=== PATIENT | female | born 1935 | race Caucasian/White ===

== ENCOUNTER 2017-09-19 08:00 | Outpatient (CLI) | payer MEDICARE, OTHER ==
[2017-09-19 14:11] LABS: ALBUMIN/GLOBULIN RATIO 1.3 (1.0-2.2); BILIRUBIN,TOTAL 0.6 mg/dL (0.2-1.0); BUN - BLOOD UREA NITROGEN 22 mg/dL (6-20); CALCIUM 9.5 mg/dL (8.5-10.3); CARBON DIOXIDE - CO2 28 mmol/L (21-32); CHLORIDE 102 mmol/L (101-111); CHOL/HDL RATIO 4.6 (<4.4); CHOLESTEROL 211 mg/dL; CREATININE 1.1 mg/dL (0.4-1.0); GFR - MDRD 47 (>89); GLUCOSE 94 mg/dL (70-100); HDL CHOLESTEROL 46 mg/dL; LDL/HDL RATIO 3.1 (<4.4); POTASSIUM 3.9 mmol/L (3.5-5.0); SODIUM 138 mmol/L (135-145); TRIGLYCERIDES 119 mg/dL; VLDL CHOLESTEROL 24 mg/dL
== END 2017-09-19 08:01 | disposition home or self-care (01) ==
LOC: LAB.WCP 08:00
PROVIDERS: ATTEND Family Medicine
DX: I48.91 Unspecified atrial fibrillation (principal); Z79.899 Other long term (current) drug therapy; E78.5 Hyperlipidemia, unspecified; I10 Essential (primary) hypertension
CPT/HCPCS: 36415; 80053; 80061

== ENCOUNTER 2017-12-26 08:00 | Outpatient (CLI) | payer MEDICARE, OTHER ==
[2017-12-26 12:51] LABS: ALBUMIN 3.8 g/dL (3.2-5.5); ALBUMIN/GLOBULIN RATIO 1.3 (1.0-2.2); BILIRUBIN,TOTAL 0.4 mg/dL (0.2-1.0); CALCIUM 9.4 mg/dL (8.5-10.3); CREATININE 1.1 mg/dL (0.4-1.0); TOTAL PROTEIN 6.7 g/dL (6.7-8.2)
[2017-12-26 12:56] LABS: BASOPHILS # (AUTO) 0.1 10^3/uL (0.0-0.1); BASOPHILS % (AUTO) 1.7 %; EOSINOPHILS # (AUTO) 0.4 10^3/uL (0.0-0.7); EOSINOPHILS % (AUTO) 4.5 %; HGB - HEMOGLOBIN 13.5 g/dL (12.0-16.0); LYMPHOCYTES # (AUTO) 2.6 10^3/uL (1.5-3.5); LYMPHOCYTES % (AUTO) 30.3 %; MEAN CORPUSCULAR HEMOGLOBIN 29.5 pg (27.0-31.0); MEAN CORPUSCULAR HGB CONC 35.4 g/dL (32.0-36.0); MEAN CORPUSCULAR VOLUME 83.3 fL (81.0-99.0); MEAN PLATELET VOLUME 8.9 fL (7.9-10.8); MONOCYTES # (AUTO) 0.5 10^3/uL (0.0-1.0); MONOCYTES % (AUTO) 6.3 %; NEUTROPHILS # (AUTO) 4.9 10^3/uL (1.5-6.6); NEUTROPHILS % (AUTO) 57.2 %; PLT - PLATELET COUNT 269 10^3/uL (130-450); RED BLOOD COUNT 4.57 10^6/uL (4.20-5.40); RED CELL DISTRIBUTION WIDTH 13.4 % (12.0-15.0); WHITE BLOOD COUNT 8.6 x10^3/uL (4.8-10.8)
[2017-12-28 13:06] LABS: ANA SCREEN NEGATIVE (NEGATIVE)
== END 2017-12-26 08:01 | disposition home or self-care (01) ==
LOC: LAB.WCP 08:00
PROVIDERS: ATTEND Physician Assistant
DX: R21 Rash and other nonspecific skin eruption (principal)
CPT/HCPCS: 36415; 80053; 84443; 85025; 86038

== ENCOUNTER 2018-06-08 08:00 | Outpatient (CLI) | payer MEDICARE, OTHER ==
[2018-06-08 12:40] LABS: ALBUMIN 3.9 g/dL (3.2-5.5); ALBUMIN/GLOBULIN RATIO 1.3 (1.0-2.2); ALKALINE PHOSPHATASE 60 IU/L (42-121); ALT ALANINE AMINOTRANSFERASE 19 IU/L (10-60); AST ASPARTATE AMINOTRANSFERASE 26 IU/L (10-42); BILIRUBIN,TOTAL 0.7 mg/dL (0.2-1.0); BUN - BLOOD UREA NITROGEN 23 mg/dL (6-20); CALCIUM 9.6 mg/dL (8.5-10.3); CARBON DIOXIDE - CO2 27 mmol/L (21-32); CHLORIDE 104 mmol/L (101-111); CHOL/HDL RATIO 3.3 (<4.4); CHOLESTEROL 175 mg/dL; GFR - MDRD 53 (>89); GLUCOSE 94 mg/dL (70-100); HDL CHOLESTEROL 53 mg/dL; LDL CHOLESTEROL,CALCULATED 106 mg/dL; SODIUM 139 mmol/L (135-145); VLDL CHOLESTEROL 16 mg/dL
== END 2018-06-08 08:01 | disposition home or self-care (01) ==
LOC: LAB.WCP 08:00
PROVIDERS: ATTEND Family Medicine
DX: I48.91 Unspecified atrial fibrillation (principal); I10 Essential (primary) hypertension; E04.1 Nontoxic single thyroid nodule; E78.5 Hyperlipidemia, unspecified
CPT/HCPCS: 36415; 80053; 80061; 83721; 84443

== ENCOUNTER 2018-12-29 09:17 | Emergency (ER) | payer MEDICARE, OTHER ==
[2018-12-29] MEDS ORDERED: ATROPINE 0.4 MG/ML VIAL IVP ONE (09:50)
--- NOTE | 2018-12-29 09:57 | ED Physician Documentation ---
History of Present Illness - Stated complaint Stated Complaint: LOW HEART RATE/SENT BY - Chief complaint Chief Complaint: Cardiac - History obtained from History obtained from: Patient - History of Present Illness Timing: How many days ago (2) - Additonal information Additional information: The patient is a 83-year-old female who presents with dizziness and lightheadedness and generalized fatigue that started 2 days ago and has persisted since that time. She reports associated dyspnea. She denies chest pain, cough, or fever. She denies nausea or vomiting. She denies history of similar symptoms in the past. Her past medical history is significant for atrial fibrillation and RBBB. She was seen in her primary physician's office this morning and was found to have bradycardia with AV dissociation, and was subsequently sent to the emergency department. Review of Systems Constitutional: reports: Fatigue, Other (Dizziness, lightheadedness.). denies: Fever Eyes: denies: Decreased vision Nose: denies: Congestion Throat: denies: Sore throat Cardiac: denies: Chest pain / pressure, Palpitations Respiratory: reports: Dyspnea. denies: Cough GI: denies: Abdominal Pain, Nausea, Vomiting : denies: Dysuria Skin: denies: Rash Musculoskeletal: denies: Back pain, Extremity pain Neurologic: reports: Generalized weakness. denies: Focal weakness, Numbness, Syncope, Headache PD PAST MEDICAL HISTORY - Past Medical History Cardiovascular: Hypertension, High cholesterol, Atrial fibrillation, Murmur Respiratory: None Endocrine/Autoimmune: None GI: None : None HEENT: None Psych: None Musculoskeletal: Osteoarthritis, Osteoporosis Derm: None - Past Surgical History Past Surgical History: Yes General: Appendectomy, Colonoscopy Ortho: Other HEENT: Tonsil/Adenoidectomy - Present Medications Home Medications: Ambulatory Orders Medication Instructions Recorded Confirmed Ascorbic Acid/Bioflavonoids [Vit 1 tab ORAL DAILY 08/07/15 12/29/18 C-Bioflavonoids Tab SA] [place]er Cit/Mag/D3/Zn/Senior Instrumentation Engineer/Mikey/Bor 2 tab ORAL DAILY 08/07/15 12/29/18 [Citracal-Vit D + Magnesium Tab] Hydrochlorothiazide 12.5 mg ORAL DAILY 08/07/15 12/29/18 Losartan Potassium 100 mg ORAL DAILY 08/07/15 12/29/18 Multivitamin [Multi-Vitamin Daily] 1 tab ORAL DAILY 08/07/15 12/29/18 [place]-3 Fatty Acids [Fish Oil] 1,400 mg ORAL DAILY 08/07/15 12/29/18 Red Yeast Rice 1,200 mg ORAL DAILY 08/07/15 12/29/18 Vit D3/Folic Acid/B2/B6/B12 1 tab ORAL DAILY 08/07/15 12/29/18 [Folgard Tablet] Aspirin 325 tab PO DAILY 12/29/18 12/29/18 - Allergies Allergies/Adverse Reactions: Allergies Allergy/AdvReac Type Severity Reaction Status Date / Time codeine AdvReac Intermediate Nausea Verified 12/29/18 09:40 - Social History Does the pt smoke?: No Smoking Status: Never smoker Does the pt drink ETOH?: No Does the pt have substance abuse?: No PD ED PE NORMAL - Vitals Vital signs reviewed: Yes (Bradycardic in the mid 30s.) - General General: Alert and oriented X 3, Well developed/nourished - HEENT HEENT: Atraumatic, EOMI, Moist mucous membranes - Neck Neck: Supple, no meningeal sign, No adenopathy, No JVD - Cardiac Cardiac: Other (Bradycardic, regular.) - Respiratory Respiratory: No respiratory distress, Clear bilaterally - Abdomen Abdomen: Soft, Non tender - Back Back: No CVA TTP - Derm Derm: No rash - Extremities Extremities: No edema, No calf tenderness / cord - Neuro Neuro: Alert and oriented X 3, No motor deficit, No sensory deficit Results - Vitals Vitals: Vital Signs - 24 hr 12/29/18 12/29/18 12/29/18 09:29 09:45 10:10 Temperature 36.4 C L Heart Rate 36 L 34 L 36 L Respiratory 18 11 L 15 Rate Blood Pressure 130/70 157/61 H 145/77 H O2 Saturation 100 94 99 12/29/18 12/29/18 12/29/18 10:30 11:01 11:30 Temperature Heart Rate 36 L 34 L 33 L Respiratory 16 14 14 Rate Blood Pressure 152/61 H 145/69 H 111/92 H O2 Saturation 97 95 94 12/29/18 12/29/18 12/29/18 11:58 12:00 12:30 Temperature Heart Rate 34 L 35 L 34 L Respiratory 14 14 17 Rate Blood Pressure 154/69 H 145/61 H 140/70 H O2 Saturation 99 97 100 12/29/18 12/29/18 12/29/18 13:00 13:30 14:00 Temperature Heart Rate 35 L 35 L 35 L Respiratory 14 14 14 Rate Blood Pressure 127/60 126/75 139/82 H O2 Saturation 99 99 97 12/29/18 12/29/18 14:30 15:00 Temperature Heart Rate 35 L 36 L Respiratory 14 14 Rate Blood Pressure 120/95 H 132/70 H O2 Saturation 94 97 Oxygen O2 Source Room air - EKG (time done) 09:31 Rate: Rate (enter#) (36) Rhythm: Other (Junctional rhythm.) [place]: LAD Compare to prior EKG: Changed from prior EKG (Compared to prior EKG of 07/27/2016, no longer in atrial fibrillation.) Computer interpretation: Agree with computer - Labs Labs: Laboratory Tests 12/29/18 12/29/18 12/29/18 09:52 09:52 09:52 WBC 12.1 H RBC 4.61 Hgb 13.3 Hct 40.2 MCV 87.3 MCH 29.0 MCHC 33.2 RDW 13.9 Plt Count 272 MPV 10.2 Neut # (Auto) 8.4 H Lymph # (Auto) 2.6 [place] # (Auto) 0.9 Eos # (Auto) 0.2 Baso # (Auto) 0.1 Absolute Nucleated RBC 0.00 Nucleated RBC % 0.0 Sodium 134 L Potassium 5.0 Chloride 101 Carbon Dioxide 25 Anion Gap 8.0 BUN 28 H Creatinine 1.3 H Estimated GFR (MDRD) 39 L Glucose 106 H Calcium 9.9 Total Bilirubin 0.7 AST 33 ALT 20 Alkaline Phosphatase 51 Troponin I < 0.04 Total Protein 6.8 Albumin 4.0 Globulin 2.8 Albumin/Globulin Ratio 1.4 Lipase 30 TSH 12/29/18 09:52 WBC RBC Hgb Hct MCV MCH MCHC RDW Plt Count MPV Neut # (Auto) Lymph # (Auto) [place] # (Auto) Eos # (Auto) Baso # (Auto) Absolute Nucleated RBC Nucleated RBC % Sodium Potassium Chloride Carbon Dioxide Anion Gap BUN Creatinine Estimated GFR (MDRD) Glucose Calcium Total Bilirubin AST ALT Alkaline Phosphatase Troponin I Total Protein Albumin Globulin Albumin/Globulin Ratio Lipase TSH 4.74 - Rads (name of study) cxr Radiology: Prelim report reviewed, EMP read contemporaneously, See rad report (Limited exam, with no acute cardiopulmonary findings.) PD MEDICAL DECISION MAKING - ED course Complexity details: reviewed old records, reviewed results, re-evaluated patient, considered differential, d/w patient, d/w family, d/w telesales consultant ED course: The patient's presentation is significant for complete heart block, with a junctional rhythm at 35. Initial cardiac enzymes are normal. Treatment in the emergency department included administration of atropine 0.4 mg IV. There was no response to this treatment. Pacer pads were applied to her chest and back. I discussed her condition with Dr. Cowan, her financial advocate. She advises transferring to [facility] for pacemaker placement. I discussed her condition with the hospitalist at [facility], and he accepts her in transfer. Transfer forms were completed. Departure - Departure Disposition: 02 Transfer Acute Care Hosp Clinical Impression: Complete heart block Condition: Stable Discharge Date/Time: 12/29/18 15:05
[2018-12-29 09:59] LABS: BASOPHILS # (AUTO) 0.1 10^3/uL (0.0-0.1); BASOPHILS % (AUTO) 0.5 %; EOSINOPHILS # (AUTO) 0.2 10^3/uL (0.0-0.7); EOSINOPHILS % (AUTO) 1.4 %; HGB - HEMOGLOBIN 13.3 g/dL (12.0-16.0); LYMPHOCYTES # (AUTO) 2.6 10^3/uL (1.5-3.5); LYMPHOCYTES % (AUTO) 21.7 %; MEAN CORPUSCULAR HGB CONC 33.2 g/dL (32.0-36.0); MEAN CORPUSCULAR VOLUME 87.3 fL (81.0-99.0); MEAN PLATELET VOLUME 10.2 fL (7.9-10.8); MONOCYTES # (AUTO) 0.9 10^3/uL (0.0-1.0); MONOCYTES % (AUTO) 7.2 %; NEUTROPHILS # (AUTO) 8.4 10^3/uL (1.5-6.6); NEUTROPHILS % (AUTO) 69.2 %; PLT - PLATELET COUNT 272 10^3/uL (130-450); RED BLOOD COUNT 4.61 10^6/uL (4.20-5.40); RED CELL DISTRIBUTION WIDTH 13.9 % (12.0-15.0); WHITE BLOOD COUNT 12.1 x10^3/uL (4.8-10.8)
[2018-12-29 10:14] LABS: ALBUMIN/GLOBULIN RATIO 1.4 (1.0-2.2); BILIRUBIN,TOTAL 0.7 mg/dL (0.2-1.0); CALCIUM 9.9 mg/dL (8.5-10.3); CREATININE 1.3 mg/dL (0.4-1.0); TOTAL PROTEIN 6.8 g/dL (6.7-8.2)
--- NOTE | 2018-12-29 10:24 | XRAY Report ---
Reason: shortness of breath. Procedure Date: 12/29/2018 Accession Number: [id number] / [id number] Procedure: XR - Chest 1 View X-Ray CPT Code: 23799 FULL RESULT: EXAM: CHEST RADIOGRAPHY EXAM DATE: 12/29/2018 10:14 AM. CLINICAL HISTORY: Shortness of breath. COMPARISON: Chest 2 views PA/lateral 07/27/2016 12:04 PM. TECHNIQUE: 1 view. FINDINGS: Lungs/Pleura: No focal opacities evident. No pleural effusion. No pneumothorax. Mediastinum: Interval increase in mild borderline cardiomegaly is likely due to decreased lung volumes and AP portable technique. Calcification of the aortic arch is stable. Other: None. IMPRESSION: Limited examination with no acute airspace disease. RADIA
[2018-12-29 15:15] VITALS: BP 132/70
== END 2018-12-29 15:05 | disposition short-term general hospital (02) ==
LOC: ED 09:17
DX: I44.2 Atrioventricular block, complete (principal); I10 Essential (primary) hypertension; E78.00 Pure hypercholesterolemia, unspecified; Z79.82 Long term (current) use of aspirin
CPT/HCPCS: 36415; 71045; 80053; 83690; 84443; 84484; 85025; 93005; 96374; 99285

== ENCOUNTER 2018-12-29 15:07 | Outpatient (CLI) | payer MEDICARE, OTHER | END 2018-12-29 15:08 | disposition short-term general hospital (02) | LOC: EMS 15:07 | PROVIDERS: ATTEND Surgery | DX: I49.9 Cardiac arrhythmia, unspecified (principal); I48.91 Unspecified atrial fibrillation | CPT/HCPCS: A0425; A0426 ==

== ENCOUNTER 2019-05-11 11:12 | Outpatient (CLI) | payer MEDICARE, OTHER ==
--- NOTE | 2019-05-11 12:38 | Ultrasound Report ---
Reason: PARASTHESIA Procedure Date: 05/11/2019 Accession Number: [id number] / [id number] Procedure: US - Ankle Brachial Index CPT Code: FULL RESULT: EXAM: BILATERAL ANKLE/BRACHIAL INDEX EXAM DATE: 05/11/2019 11:52 AM. CLINICAL HISTORY: PARESTHESIA. COMPARISON: None. TECHNIQUE: A blood pressure cuff and pulse volume recording Doppler ultrasound was used to evaluate the arterial pressures in the arms and ankle. No images were acquired. FINDINGS: Systolic pressures: Right brachial artery: 152 mmHg, index 69 Left brachial artery: 128 mmHg, index 75 Right ankle: 156 mmHg, index 67 Left ankle: 149 mmHg, index 76 Ankle/Arm Index: Right 1.0. Left 1.1. Right leg: CHILDREN'S SERVICE SUPERVISOR: PSV 31. Monophasic/biphasic waveform. DPA: PSV 28. Biphasic waveform. Left leg: CHILDREN'S SERVICE SUPERVISOR: PSV 25. Biphasic waveform. DPA: PSV 14. Monophasic waveform. Risk Factors: Hypertension. IMPRESSION: 1. Right ankle/brachial index: 1.0. 2. Left ankle/brachial index: 1.1. ANKLE/BRACHIAL INDEX REFERENCE STANDARDS 1.0-1.4: Normal 0.90-0.99: Borderline < 0.9: Abnormal RADIA
== END 2019-05-11 11:13 | disposition home or self-care (01) ==
LOC: DI 11:12
PROVIDERS: ATTEND Family Medicine
DX: R20.9 Unspecified disturbances of skin sensation (principal)
CPT/HCPCS: 93922

== ENCOUNTER 2019-07-10 08:00 | Outpatient (CLI) | payer MEDICARE, OTHER ==
[2019-07-10 19:07] LABS: BASOPHILS # (AUTO) 0.1 10^3/uL (0.0-0.1); BASOPHILS % (AUTO) 0.6 %; EOSINOPHILS # (AUTO) 0.3 10^3/uL (0.0-0.7); EOSINOPHILS % (AUTO) 3.7 %; HGB - HEMOGLOBIN 14.4 g/dL (12.0-16.0); LYMPHOCYTES # (AUTO) 3.1 10^3/uL (1.5-3.5); LYMPHOCYTES % (AUTO) 36.5 %; MEAN CORPUSCULAR HEMOGLOBIN 28.5 pg (27.0-31.0); MEAN CORPUSCULAR HGB CONC 31.4 g/dL (32.0-36.0); MEAN CORPUSCULAR VOLUME 90.7 fL (81.0-99.0); MEAN PLATELET VOLUME 11.7 fL (7.9-10.8); MONOCYTES # (AUTO) 0.7 10^3/uL (0.0-1.0); MONOCYTES % (AUTO) 8.1 %; NEUTROPHILS # (AUTO) 4.2 10^3/uL (1.5-6.6); NEUTROPHILS % (AUTO) 50.7 %; PLT - PLATELET COUNT 276 10^3/uL (130-450); RED BLOOD COUNT 5.05 10^6/uL (4.20-5.40); RED CELL DISTRIBUTION WIDTH 13.9 % (12.0-15.0); WHITE BLOOD COUNT 8.4 x10^3/uL (4.8-10.8)
[2019-07-10 19:40] LABS: ALBUMIN 4.3 g/dL (3.2-5.5); ALBUMIN/GLOBULIN RATIO 1.4 (1.0-2.2); ALKALINE PHOSPHATASE 55 IU/L (42-121); ALT ALANINE AMINOTRANSFERASE 18 IU/L (10-60); AST ASPARTATE AMINOTRANSFERASE 25 IU/L (10-42); BILIRUBIN,TOTAL 0.6 mg/dL (0.2-1.0); BUN - BLOOD UREA NITROGEN 19 mg/dL (6-20); CALCIUM 10.4 mg/dL (8.5-10.3); CARBON DIOXIDE - CO2 28 mmol/L (21-32); CHLORIDE 104 mmol/L (101-111); CHOL/HDL RATIO 3.4 (<4.4); CHOLESTEROL 196 mg/dL; GFR - MDRD 53 (>89); GLUCOSE 80 mg/dL (70-100); HDL CHOLESTEROL 57 mg/dL; LDL CHOLESTEROL,CALCULATED 115 mg/dL; SODIUM 142 mmol/L (135-145); TOTAL PROTEIN 7.4 g/dL (6.7-8.2); VLDL CHOLESTEROL 24 mg/dL
[2019-07-10 20:35] LABS: FOLATE > 49.60 ng/mL (5.90 - >24.8)
== END 2019-07-10 23:59 | disposition home or self-care (01) ==
LOC: LAB.WCP 08:00
PROVIDERS: ATTEND Family Medicine
DX: I48.91 Unspecified atrial fibrillation (principal); Z79.899 Other long term (current) drug therapy; E78.5 Hyperlipidemia, unspecified; R20.9 Unspecified disturbances of skin sensation
CPT/HCPCS: 36415; 80053; 80061; 82607; 82746; 83721; 85025

== ENCOUNTER 2019-11-19 12:27 | Outpatient (CLI) | payer MEDICARE, OTHER ==
--- NOTE | 2019-11-19 13:37 | CT Report ---
Reason: HEADACHE, ELDERLY FALL Procedure Date: 11/19/2019 Accession Number: [id number] / [id number] Procedure: CT - HEAD WO CPT Code: Addended Final Report FULL RESULT: EXAM: CT HEAD EXAM DATE: 11/19/2019 12:56 PM. CLINICAL HISTORY: HEADACHE, ELDERLY FALL. COMPARISON: None. TECHNIQUE: Multiaxial CT images were obtained from the foramen magnum to the vertex. Reformats: Sagittal and coronal. IV contrast: None. In accordance with CT protocol optimization, one or more of the following dose reduction techniques were utilized for this exam: automated exposure control, adjustment of mA and/or KV based on patient size, or use of iterative reconstructive technique. FINDINGS: Parenchyma: No intraparenchymal hemorrhage. No evidence of mass or midline shift. Spear-white differentiation is distinct. Diffuse chronic microangiopathic white matter changes are evident. Extraaxial Spaces: Normal for age. No subdural or epidural collections identified. Ventricles: The ventricles and cortical sulci are enlarged, consistent with age-related tissue loss. Sinuses and orbits: Imaged paranasal sinuses, orbits, and mastoids show no significant abnormality. Bones: No evidence of fracture or calvarial defect. Other: None. IMPRESSION: Generalized age-related cortical atrophic changes without evidence of acute intracranial abnormality. RADIA The call report notification system was initiated by Dr. Kaya Green at 01:33 PM on 11/19/2019. ADDENDUM: 11/19/19 13:47 Done ADDENDUM: 11/19/19 13:52
--- NOTE | 2019-11-19 13:49 | CT Report ---
Reason: ACUTE NECK PAIN, ELDERLY FALL Procedure Date: 11/19/2019 Accession Number: [id number] / [id number] Procedure: CT - CERVICAL SPINE WO CPT Code: Addended Final Report FULL RESULT: EXAM: CT CERVICAL SPINE WITHOUT CONTRAST DATE: 11/19/2019 01:05 PM. HISTORY: Acute and persistent neck pain, reported ground-level fall about a week ago. COMPARISONS: None. TECHNIQUE: Thin-section axial images were acquired of the cervical spine without contrast. Post-processing: Coronal and sagittal reformats. Other: None. In accordance with CT protocol optimization, one or more of the following dose reduction techniques were utilized for this exam: automated exposure control, adjustment of mA and/or KV based on patient size, or use of iterative reconstructive technique. FINDINGS: Alignment: Mild chronic degenerative retrolisthesis of C1 on C2. Bones: No acute fracture. Vertebral body heights are grossly maintained. Interspace Levels/Facets: C1-C2: Severe mixed hypertrophic and erosive degenerative changes around the odontoid process. Partially calcified pannus-like soft tissue thickening dorsal to the odontoid process measuring 9-10 mm AP in the midline. No associated cord impingement. Chronic thinning and remodeling of the anterior C1 neural arch. Mild chronic-appearing degenerative C1 on C2 retrolisthesis. Minimal arthritis of the lateral mass articulations. C2-C3: Minimally narrowed disk space. Both facet joints show solid bony fusion. No significant bony stenosis. C3-C4: Solid bony fusion of the mildly hypertrophied facet joint on the left. Partially fused intervertebral disk space. No significant stenosis. C4-C5: Severe disk degeneration. Anterior marginal spurring. Prominent diskogenic sclerosis. Near complete disk space height loss. Mild erosive component of endplate degeneration. Mild bilateral uncinate process spurring. Mild right and moderate left bony foraminal stenosis. The osseous contours of the central canal are grossly maintained. Mild facet arthropathy. C5-C6: Moderate to severe chronic disk degeneration. Prominent bridging anterior osteophyte. Bilateral uncinate process hypertrophy and spurring. Unremarkable facets. Mild bony central stenosis from broad-based bar-like posterior disk osteophyte complex. Mild to moderate bilateral bony foraminal stenosis. C6-C7: Moderate to severe chronic disk degeneration. Anterior marginal spurring. Minimal to mild central stenosis from broad-based bar-like posterior degenerative disk osteophyte complex. Minimal facet arthropathy. Minimal to mild left and [id number] right foraminal stenosis. C7-T1: Severe disk degeneration. Mixed lucent/lytic and sclerotic endplate changes. Anterior and posterior marginal spurring. Mild facet arthropathy. Minimal central stenosis. Moderate bilateral bony foraminal stenosis. Musculature: Normal. No fatty atrophy. Other: Tiny focal calcification adjacent to the tip of the C7 spinous process appears chronic and may be degenerative. No focal prevertebral edema. IMPRESSION: 1. No acute fracture or dislocation. 2. Chronic advanced degenerative changes. 3. Multilevel degenerative stenosis. 4. Solid bony fusion of facet joints bilaterally at C2-C3 and on the left at C3-C4. 5. Mild chronic-appearing degenerative C1 on C2 retrolisthesis primarily secondary to prominent degenerative changes around the odontoid process. RADIA The call report notification system was initiated by Dr. Bang Johnson at 01:30 PM on 11/19/2019. ADDENDUM: 11/19/19 13:52 The above call report findings were discussed with Khoa Gant by Dr. Bang Johnson at 01:52 PM on 11/19/2019.
== END 2019-11-19 12:28 | disposition home or self-care (01) ==
LOC: DI 12:27
PROVIDERS: ATTEND Family Medicine
DX: M50.321 Other cervical disc degeneration at C4-C5 level (principal); M48.02 Spinal stenosis, cervical region; R51 Headache; R29.6 Repeated falls
CPT/HCPCS: 70450; 72125

== ENCOUNTER 2019-12-07 07:00 | Outpatient (CLI) | payer MEDICARE, OTHER | END 2019-12-07 23:59 | disposition home or self-care (01) | LOC: LAB.WCP 07:00 | PROVIDERS: ATTEND Psychiatry & Neurology Neurology | DX: G62.9 Polyneuropathy, unspecified (principal) | CPT/HCPCS: 36415; 81599; 82607; 84155; 84165; 86334 ==

== ENCOUNTER 2021-04-22 08:00 | Outpatient (CLI) | payer MEDICARE, OTHER ==
--- NOTE | 2021-04-22 15:23 | XRAY Report ---
PROCEDURE: Knee 3 View RT INDICATIONS: ELDERLY FALL TECHNIQUE: 3 views of the right knee(s) were acquired. COMPARISON: None. FINDINGS: Small joint effusion. Scattered subchondral sclerosis and spurring. Moderate to severe narrowing of the lateral joint space. Scattered vascular calcifications. IMPRESSION: Small joint effusion Moderate to severe degenerative joint disease. No fracture identified Reviewed by: Albert Sauceda MD on 04/22/2021 3:22 PM PDT Approved by: Albert Sauceda MD on 04/22/2021 3:22 PM PDT Station ID: [id number]
--- NOTE | 2021-04-22 15:32 | XRAY Report ---
PROCEDURE: Hips 2V BILAT INDICATIONS: ELDERLY FALL TECHNIQUE: 3 views of the hip were acquired. COMPARISON: None. FINDINGS: Fracture of the right femoral neck is noted. There is minimal if any displacement. Spondylosis of the lumbar spine and facet arthropathy. Background [id number] bilateral hip joint degeneration IMPRESSION: Right femoral neck fracture Findings (including all critical results) and recommendations were personally telephoned and discusse d with Dr. Gutiérrez on 04-22-21 15:27 Reviewed by: Albert Sauceda MD on 04/22/2021 3:31 PM PDT Approved by: Albert Sauceda MD on 04/22/2021 3:31 PM PDT Station ID: [id number]
== END 2021-04-22 23:59 | disposition home or self-care (01) ==
LOC: DI.N 08:00
PROVIDERS: ATTEND Physician Assistant Medical
DX: S72.001A Fracture of unspecified part of neck of right femur, initial encounter for closed fracture (principal); R29.6 Repeated falls; M16.0 Bilateral primary osteoarthritis of hip; M17.11 Unilateral primary osteoarthritis, right knee; M47.816 Spondylosis without myelopathy or radiculopathy, lumbar region

== ENCOUNTER 2021-08-10 16:28 | Outpatient (CLI) | payer MEDICARE, OTHER ==
--- NOTE | 2021-08-10 18:03 | XRAY Report ---
PROCEDURE: Ankle 3 View RT INDICATIONS: R ANKLE PX TECHNIQUE: 3. views of the ankle were acquired. COMPARISON: None. FINDINGS: Bones: Fracture at the distal fibula with minimal displacement. This is at the level of the syndesmos is. No dislocation. Ankle mortise is otherwise normally aligned. Calcaneal spur. No suspicious bony lesions. Soft tissues: Small tibiotalar joint effusion. Swelling at the lateral malleolus. Achilles tendon richard ears normal. IMPRESSION: Minimally displaced fracture of the distal fibula at the level of the syndesmosis. [place] Reviewed by: Selvin Gaxiola MD on 08/10/2021 5:02 PM MANDO Approved by: Selvin Gaxiola MD on 08/10/2021 5:02 PM MANDO Station ID: [id number]
== END 2021-08-10 16:29 | disposition home or self-care (01) ==
LOC: DI.N 16:28
PROVIDERS: ATTEND Family Medicine
DX: S82.831A Other fracture of upper and lower end of right fibula, initial encounter for closed fracture (principal)

== ENCOUNTER 2021-09-01 15:52 | Outpatient (CLI) | payer MEDICARE, OTHER ==
--- NOTE | 2021-09-01 17:10 | XRAY Report ---
PROCEDURE: Hip w/Pelvis 1V RT INDICATIONS: R HIP PX AFTER A FALL TECHNIQUE: AP pelvis with lateral view(s) of the right hip(s). COMPARISON: X-ray hip fine 2621 FINDINGS: Bones: Previous fracture lucency surrounding the right femoral head is less prominent compared to henry or exam. No change in alignment Pelvic ring appears intact. No suspicious bony lesions. Soft tissues: The visualized bowel gas pattern is normal. No suspicious soft tissue calcifications. IMPRESSION: Appearance of healing femoral neck fracture with stable alignment. Reviewed by: Gwendolyn Vance MD on 09/01/2021 5:09 PM PDT Approved by: Gwendolyn Vance MD on 09/01/2021 5:09 PM PDT Station ID: [id number]
== END 2021-09-01 15:53 | disposition home or self-care (01) ==
LOC: DI.N 15:52
PROVIDERS: ATTEND Family Medicine
DX: M25.551 Pain in right hip (principal)

== ENCOUNTER 2021-10-12 09:32 | Outpatient (CLI) | payer MEDICARE, OTHER ==
--- NOTE | 2021-10-12 10:58 | DEXA Report ---
PROCEDURE: Dexa Spine and/or Hip INDICATIONS: OSTEOPENIA TECHNIQUE: Dual energy x-ray absorptiometry (DXA) was performed on a [employer] System. Regions measur ed are the AP Spine, femoral neck, and if needed forearm. COMPARISON: None. FINDINGS: Lumbar Spine: Bone Mineral Density 1.549 g/cm/cm,T score 3.1, normal Left Hip: Bone Mineral Density 0.940 g/cm/cm,T score -0.5, normal Left Femoral Neck: Bone Mineral Density 0.926 g/cm/cm, T score -0.8, normal (T score greater or equal to -1.0: NORMAL) (T score from -1.1 to -2.4: OSTEOPENIA) (T score less than or equal to -2.5 to: OSTEOPOROSIS) Impression: Normal bone mineral density. Patients with diagnosis of osteoporosis or osteopenia should have regular bone mineral density assess ment. For those eligible for Medicare, routine testing is allowed once every 2 years. Testing frequ ency can be increased for patients who have rapidly progressing disease or for those who are receivin g medical therapy to restore bone mass. Reviewed by: Marie Can MD, PhD on 10/12/2021 10:57 AM PST Approved by: Marie Can MD, PhD on 10/12/2021 10:57 AM PST Station ID: [id number]
== END 2021-10-12 09:33 | disposition home or self-care (01) ==
LOC: DI 09:32
PROVIDERS: ATTEND Family Medicine
DX: M85.88 Other specified disorders of bone density and structure, other site (principal)

== ENCOUNTER 2022-08-19 08:38 | Outpatient (CLI) | payer MEDICARE, OTHER ==
--- NOTE | 2022-08-20 14:18 | Ultrasound Report ---
PROCEDURE: Abdomen Complete INDICATIONS: PELVIC PAIN, ABD PAIN TECHNIQUE: Real-time scanning was performed of the abdominal and retroperitoneal organs, with image documentatio n. COMPARISON: CT abdomen and pelvis with, 08/06/2016. FINDINGS: Liver: Liver is normal in size and demonstrates diffusely increased echotexture. There is a 1.3 x 1 .1 x 0.9 cm cyst in the right hepatic lobe. Portal vein is patent. Gallbladder: Gallbladder is normal. No gallstones, call bladder wall thickening, pericholecystic flui d collection or sonographic Hill sign. Biliary ducts: Intrahepatic bile ducts are non-dilated. Extrahepatic bile duct caliber measures 2.9 mm. Normal is 6-7 mm or less in diameter, or 10 mm or less post-cholecystectomy. Pancreas: Visualized portions of the pancreas are sonographically normal. Pancreatic tail is not se en. Spleen: Spleen is normal in size and homogeneous in echotexture. Kidneys: Kidneys are normal in size and echotexture. Right kidney measures 9.4 cm long; left kidney measures 9.6 cm long. No hydronephrosis or nephrolithiasis. No solid masses. Aorta: Visualized aorta is normal in caliber at less than 3 cm. Iliacs: Proximal common iliac arteries are normal in caliber at less than 2.5 cm. IVC: Intrahepatic inferior vena cava is patent. Miscellaneous: No free abdominal fluid. IMPRESSION: 1. Diffuse increased hepatic echotexture most likely secondary to hepatic fatty infiltration. Other h epatocellular disease could've a similar ultrasound appearance. Please correlate with liver function tests. 2. Normal gallbladder. No gallstones were ultrasound findings to suggest acute cholecystitis. 3. A 1.3 x 1.1 x 0.9 cm cyst in the right hepatic lobe. Reviewed by: Megan Claire MD on 08/20/2022 2:17 PM PDT Approved by: Megan Claire MD on 08/20/2022 2:17 PM PDT Station ID: [id number]
== END 2022-08-19 08:39 | disposition home or self-care (01) ==
LOC: DI 08:38
PROVIDERS: ATTEND Nurse Practitioner
DX: R10.32 Left lower quadrant pain (principal); R93.2 Abnormal findings on diagnostic imaging of liver and biliary tract; K76.89 Other specified diseases of liver

== ENCOUNTER 2022-08-24 15:20 | Outpatient (CLI) | payer MEDICARE, OTHER ==
--- NOTE | 2022-08-24 17:12 | Ultrasound Report ---
PROCEDURE: Pelvic w/Transvaginal INDICATIONS: PELVIC PAIN, ABD PAIN TECHNIQUE: Real-time scanning was performed of the pelvic organs, with image documentation. Additional endovagi nal scanning was necessary due to incomplete visualization of the adnexal and endometrial structures by transabdominal scanning. COMPARISON: 05/27/2015 Correlation is made with the prior abdomen and pelvis CT, 08/06/2016 FINDINGS: Uterus: Uterus is anteverted and normal in size at 5.6 x 2.9 x 5.4 cm. The myometrium is heterogene ous. The endometrium measures 1-2 mm in combined thickness. Several calcified uterine fibroids are again seen, with the largest measuring up to 3.1 cm along the right posteriorly. Ovaries: The right ovary is not seen on these images. The left ovary measures 2.4 x 1.4 x 2.4 cm, with a volume of 4.2 cc. A calcified teratoma is again se en, which measures approximately 2.3 x 1.8 cm and is overall best demonstrated on prior CT. Other: No pathologic free abdominal or pelvic fluid. 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 Numerous uterine fibroids are again seen. Right ovary not seen on these ultrasound images. Reviewed by: Cj Rebolledo MD on 08/24/2022 4:11 PM MANDO Approved by: Cj Rebolledo MD on 08/24/2022 4:11 PM MANDO Station ID: [id number]
== END 2022-08-24 15:21 | disposition home or self-care (01) ==
LOC: DI 15:20
PROVIDERS: ATTEND Nurse Practitioner
DX: D27.1 Benign neoplasm of left ovary (principal); D25.9 Leiomyoma of uterus, unspecified

== ENCOUNTER 2022-11-26 10:57 | Outpatient (CLI) | payer MEDICARE, OTHER ==
[2022-11-26 18:25] LABS: BASOPHILS # (AUTO) 0.1 10^3/uL (0.0-0.1); BASOPHILS % (AUTO) 0.7 %; EOSINOPHILS # (AUTO) 0.4 10^3/uL (0.0-0.7); EOSINOPHILS % (AUTO) 4.3 %; HCT - HEMATOCRIT 41.9 % (37.0-47.0); HGB - HEMOGLOBIN 13.3 g/dL (12.0-16.0); LYMPHOCYTES # (AUTO) 2.5 10^3/uL (1.5-3.5); LYMPHOCYTES % (AUTO) 29.3 %; MEAN CORPUSCULAR HEMOGLOBIN 28.9 pg (27.0-31.0); MEAN CORPUSCULAR HGB CONC 31.7 g/dL (32.0-36.0); MEAN CORPUSCULAR VOLUME 91.1 fL (81.0-99.0); MEAN PLATELET VOLUME 12.1 fL (7.9-10.8); MONOCYTES # (AUTO) 0.6 10^3/uL (0.0-1.0); NEUTROPHILS % (AUTO) 58.4 %; PLT - PLATELET COUNT 275 10^3/uL (130-450); RED CELL DISTRIBUTION WIDTH 14.2 % (12.0-15.0); WHITE BLOOD COUNT 8.6 x10^3/uL (4.8-10.8)
[2022-11-26 18:50] LABS: ALBUMIN 4.1 g/dL (3.2-5.5); ALBUMIN/GLOBULIN RATIO 1.3 (1.0-2.2); ALKALINE PHOSPHATASE 68 IU/L (42-121); ALT ALANINE AMINOTRANSFERASE 16 IU/L (10-60); AST ASPARTATE AMINOTRANSFERASE 23 IU/L (10-42); BILIRUBIN,TOTAL 0.3 mg/dL (0.2-1.0); BUN - BLOOD UREA NITROGEN 18 mg/dL (6-20); CALCIUM 9.9 mg/dL (8.5-10.3); CARBON DIOXIDE - CO2 29 mmol/L (21-32); CHLORIDE 102 mmol/L (101-111); CREATININE 0.9 mg/dL (0.4-1.0); GFR - MDRD 59 (>89); GLUCOSE 84 mg/dL (70-100); POTASSIUM 4.7 mmol/L (3.5-5.0); SODIUM 140 mmol/L (135-145); TOTAL PROTEIN 7.2 g/dL (6.7-8.2)
[2022-11-26 19:05] LABS: CRP - C-REACTIVE PROTEIN < 1.0 mg/dL (0-1.0)
[2022-11-30 12:08] LABS: ANTI-DNA (DS) AB QN 2 IU/mL (0-9); CENTROMERE B ANTIBODIES <0.2 AI (0.0-0.9); CHROMATIN ANTIBODIES <0.2 AI (0.0-0.9); JO-1 AB <0.2 AI (0.0-0.9); RIBOSOMAL P ANTIBODIES <0.2 AI (0.0-0.9); RNP ANTIBODIES <0.2 AI (0.0-0.9); SCLERODERMA-70 ANTIBODIES <0.2 AI (0.0-0.9); SJOGREN'S ANTI-SS-A <0.2 AI (0.0-0.9); SJOGREN'S ANTI-SS-B <0.2 AI (0.0-0.9); SMITH ANTIBODIES <0.2 AI (0.0-0.9); SMITH/RNP ANTIBODIES <0.2 AI (0.0-0.9)
== END 2022-11-26 10:58 | disposition home or self-care (01) ==
LOC: LAB.N 10:57
PROVIDERS: ATTEND Nurse Practitioner
DX: R21 Rash and other nonspecific skin eruption (principal)
CPT/HCPCS: 36415; 80053; 81599; 83516; 85025; 85651; 86140; 86160; 86225; 86235

== ENCOUNTER 2023-07-15 08:00 | Outpatient (CLI) | payer MEDICARE, OTHER ==
[2023-07-15 12:42] LABS: CALCIUM 10.6 mg/dL (8.5-10.3); CREATININE 1.1 mg/dL (0.6-1.3); POTASSIUM 3.9 mmol/L (3.5-4.5)
== END 2023-07-15 08:01 | disposition home or self-care (01) ==
LOC: LAB.N 08:00
PROVIDERS: ATTEND Internal Medicine
DX: I48.20 Chronic atrial fibrillation, unspecified (principal)
CPT/HCPCS: 36415; 80048

== ENCOUNTER 2023-08-15 07:36 | Outpatient (CLI) | payer MEDICARE, OTHER ==
[2023-08-15 12:48] LABS: CALCIUM 10.4 mg/dL (8.5-10.3); POTASSIUM 3.7 mmol/L (3.5-4.5)
== END 2023-08-15 07:37 | disposition home or self-care (01) ==
LOC: LAB.N 07:36
PROVIDERS: ATTEND Internal Medicine
DX: I10 Essential (primary) hypertension (principal)
CPT/HCPCS: 36415; 80048; 82330; 83970

== ENCOUNTER 2023-09-03 09:13 | Outpatient (CLI) | payer MEDICARE, OTHER | END 2023-09-03 09:14 | disposition critical access hospital (66) | LOC: EMS 09:13 | DX: R42 Dizziness and giddiness (principal); R51.9 Headache, unspecified; R11.2 Nausea with vomiting, unspecified; H53.8 Other visual disturbances | CPT/HCPCS: A0425; A0429 ==

== ENCOUNTER 2023-09-03 09:37 | Emergency (ER) | payer MEDICARE, OTHER ==
--- NOTE | 2023-09-03 10:18 | ED Physician Documentation ---
History of Present Illness - Stated complaint Stated Complaint: DIZZY/TORRES/BLURRY VISION - Chief complaint Chief Complaint: Neuro - History obtained from History obtained from: Patient, Family - History of Present Illness Timing: Today - Additonal information Additional information: Dizziness lightheadedness diplopia and difficulty walking on her on arising this morning has led this patient to call the ambulance and come to the hospital with her family. She has been having episodes of dizziness and lightheadedness previously for some time she has not typically had diplopia. Her symptoms today are much more profound than normal. She did have some time yesterday where she had some dizziness as well and she did go out to lunch with her girlfriends yesterday.She has a history of atrial fibrillation and she is not on a blood thinner she is being evaluated for a watchman. She apparently does not tolerate blood thinner. She has a pacer in place and she takes some losartan. She did not take her medication this morning. She did have some headache this morning on the left side of her head on the ex but this has now improved. Review of Systems Constitutional: denies: Fever, Chills, Myalgias Eyes: reports: Other (Blurred vision and diplopia this morning). denies: Decreased vision, Photophobia Ears: denies: Ear pain Nose: denies: Rhinorrhea / runny nose, Congestion Throat: denies: Sore throat Cardiac: denies: Chest pain / pressure Respiratory: denies: Dyspnea, Cough GI: denies: Abdominal Pain, Nausea, Vomiting, Constipation, Diarrhea : reports: Other (endorses urinary urgency). denies: Dysuria, Frequency Skin: denies: Rash Musculoskeletal: denies: Neck pain, Back pain, Extremity pain Neurologic: reports: Generalized weakness, Headache. denies: Focal weakness, Numbness, Head injury, LOC PD PAST MEDICAL HISTORY - Past Medical History Cardiovascular: Hypertension, High cholesterol, Atrial fibrillation, Murmur Respiratory: None Endocrine/Autoimmune: None GI: None : None HEENT: None Psych: None Musculoskeletal: Osteoarthritis, Osteoporosis Derm: None - Past Surgical History Past Surgical History: Yes General: Appendectomy, Colonoscopy Ortho: Other HEENT: Tonsil/Adenoidectomy - Present Medications Home Medications: Ambulatory Orders Medication Instructions Recorded Confirmed Ascorbic Acid/Bioflavonoids [Vit 1 tab ORAL DAILY 08/07/15 09/03/23 C-Bioflavonoids Tab SA] Spenser Cit/Mag/D3/Zn/Manager Basketball/Mikey/Bor 2 tab ORAL DAILY 08/07/15 09/03/23 [Citracal-D3 Plus Magnesium Tab] Multivitamin [Multi-Vitamin Daily] 1 tab ORAL DAILY 08/07/15 09/03/23 [place]-3 Fatty Acids [Fish Oil] 1,400 mg ORAL DAILY 08/07/15 09/03/23 Red Yeast Rice 1,200 mg ORAL DAILY 08/07/15 09/03/23 Vit D3/Folic Acid/B2/B6/B12 1 tab ORAL DAILY 08/07/15 09/03/23 [Folgard Tablet] Aspirin [Aspirin EC] 81 mg PO DAILY 09/03/23 09/03/23 Ciprofloxacin HCl [Cipro] 500 mg PO BID #14 tablet 09/03/23 Losartan Potassium 25 mg PO DAILY 09/03/23 09/03/23 - Allergies Allergies/Adverse Reactions: Allergies Allergy/AdvReac Type Severity Reaction Status Date / Time amoxicillin Allergy Unknown Verified 09/03/23 09:49 gabapentin Allergy Unknown Verified 09/03/23 09:49 hydrochlorothiazide Allergy Dizziness Verified 09/03/23 09:49 simvastatin Allergy Unknown Verified 09/03/23 09:49 codeine AdvReac Intermediate Nausea Verified 12/29/18 09:40 latex AdvReac Unknown Verified 09/03/23 09:49 - Social History Does the pt smoke?: No Smoking Status: Never smoker Does the pt drink ETOH?: No Does the pt have substance abuse?: No - Immunizations Immunizations are current?: Yes PD ED PE NORMAL - Vitals Vital signs reviewed: Yes (hypertensive ) - General General: Alert and oriented X 3, No acute distress, Well developed/nourished - HEENT HEENT: Atraumatic, PERRL, EOMI - Neck Neck: Supple, no meningeal sign, No bony TTP - Cardiac Cardiac: No murmur, Other (Irregularly irregular rate and rhythm) - Respiratory Respiratory: No respiratory distress, Clear bilaterally - Abdomen Abdomen: Normal bowel sounds, Non tender, Non distended, No organomegaly - Back Back: No CVA TTP, No spinal TTP - Derm Derm: Normal color, Warm and dry, No rash, Other (Skin tents easily) - Extremities Extremities: No deformity, No edema - Neuro Neuro: Alert and oriented X 3, lighter captain 2-12 intact, No motor deficit, No sensory deficit, Normal speech Eye Opening: Spontaneous Motor: Obeys Commands Verbal: Oriented GCS Score: 15 - Psych Psych: Normal mood, Normal affect Results - Vitals Vitals: Vital Signs - 24 hr 09/03/23 09/03/23 09/03/23 09:50 09:52 11:52 Temperature 36.2 C L Heart Rate 60 60 60 Respiratory 22 12 14 Rate Blood Pressure 181/81 H 181/81 H 200/83 H O2 Saturation 99 99 97 09/03/23 13:19 Temperature Heart Rate 60 Respiratory 16 Rate Blood Pressure 191/88 H O2 Saturation 100 Oxygen O2 Source Room air - EKG (time done) 1043 EKG releavant findings:: EKG personally interpreted by author of this note. Relevant findings are: Rate: Rate (enter#) (60) Rhythm: Other (junctional ) Intervals: Wide QRS Ischemia: Q waves (deep in V1/2 and new since prior tracing 3 years ago. ) Compare to prior EKG: Changed from prior EKG (SPT 12-29-2018 new deep q waves in V1/2 have developed ) Computer interpretation: Agree with computer - Labs Labs: Laboratory Tests 09/03/23 09/03/23 09/03/23 10:00 10:00 10:00 WBC 8.2 RBC 4.79 Hgb 14.2 Hct 43.1 MCV 90.0 MCH 29.6 MCHC 32.9 RDW 14.2 Plt Count 257 MPV 11.7 H Neut # (Auto) 5.9 Lymph # (Auto) 1.6 [place] # (Auto) 0.5 Eos # (Auto) 0.2 Baso # (Auto) 0.1 Absolute Nucleated RBC 0.00 Nucleated RBC % 0.0 Sodium 140 Potassium 4.1 Chloride 106 Carbon Dioxide 29 Anion Gap 5.0 L BUN 19 Creatinine 0.9 Estimated GFR (MDRD) 59 L Glucose 115 H Calcium 10.0 Total Bilirubin 0.6 AST 19 ALT 11 Alkaline Phosphatase 63 Troponin I High Sens 6.3 Total Protein 7.2 Albumin 4.4 Globulin 2.8 Albumin/Globulin Ratio 1.6 Lipase 16 Urine Color Urine Clarity Urine pH Ur Specific [place] Urine Protein Urine Glucose (UA) Urine Ketones Urine Occult Blood Urine Nitrite Urine Bilirubin Urine Urobilinogen Ur Leukocyte Esterase Urine RBC Urine WBC Ur Squamous Epith Cells Amorphous Sediment Urine Bacteria Urine Mucus Ur Microscopic Review Urine Culture Comments 09/03/23 12:05 WBC RBC Hgb Hct MCV MCH MCHC RDW Plt Count MPV Neut # (Auto) Lymph # (Auto) [place] # (Auto) Eos # (Auto) Baso # (Auto) Absolute Nucleated RBC Nucleated RBC % Sodium Potassium Chloride Carbon Dioxide Anion Gap BUN Creatinine Estimated GFR (MDRD) Glucose Calcium Total Bilirubin AST ALT Alkaline Phosphatase Troponin I High Sens Total Protein Albumin Globulin Albumin/Globulin Ratio Lipase Urine Color YELLOW Urine Clarity CLEAR Urine pH 7.5 Ur Specific [place] 1.015 Urine Protein TRACE Urine Glucose (UA) NEGATIVE Urine Ketones NEGATIVE Urine Occult Blood NEGATIVE Urine Nitrite NEGATIVE Urine Bilirubin NEGATIVE Urine Urobilinogen 0.2 (NORMAL) Ur Leukocyte Esterase MODERATE H Urine RBC 0-5 Urine WBC 6-10 H Ur Squamous Epith Cells FEW Squamous Amorphous Sediment Few Urine Bacteria Moderate H Urine Mucus Few Strands Ur Microscopic Review INDICATED Urine Culture Comments INDICATED - Rads (name of study) CT angio head and neck Relevant Findings:: Prelim report reviewed (Impression: No significant intracranial arterial abnormalities are seen. No hemodynamically significant stenosis can be seen within the arteries of the neck. Additional findings type a region of the right posterior cerebral artery and moderate prominent cervical spine degenerative change), EMP independent interpretation of test Procedures - IVC sono (time) 1030 Bedside IVC sono: IVC measures (cm) (1.56), Euvolemia PD Medical Decision Making - ED course Complexity details: reviewed old records, reviewed results, re-evaluated patient, considered differential, d/w patient, d/w family Reviewed Lab Results: We reviewed a complete blood count showing a normal white blood cell count normal hemoglobin hematocrit and platelets chemistries were unremarkable with normal electrolytes normal kidney and liver function and a normal high- sensitivity troponin urinalysis was remarkable for a moderate urinary leukocyte esterase and 6-10 white blood cells prior per high-powered field with moderate bacteria this specimen did make the grade for culture and indicates a pathologic infection with the patient's symptom of urinary urgency. ED course: Iris Atkins is an 88-year-old female with a history of atrial fibrillation who has a pacer in place for a complete heart block who awoke this morning with dizziness and lightheadedness. We evaluated patient here in the emergency department we did not find her to be significantly dehydrated and with a history of atrial fibrillation not on anticoagulation we considered the possibility of stroke. She had a nonfocal examination on arrival. She complained most bitterly of dizziness and lightheadedness. She had hypertension. She had significant systolic hypertension. We obtained a CT angiogram of the head and neck which was without abnormality. We eventually evaluated a urine specimen which demonstrated evidence of infection. The patient's symptom with this is urinary urgency. She denies pain. She is administered Rocephin intravenously. She does have issues with her blood pressure and we did administer her her losartan which did not do much to control her blood pressure we eventually gave her a dose of labetalol 20 mg intravenously. I have asked patient to follow-up with her primary about alternative agents for hypertension and we will provide antibiotic to treat urinary tract infection Departure - Departure Disposition: 01 Home, Self Care Clinical Impression: Urinary tract infection Qualifiers: Urinary tract infection type: acute cystitis Hematuria presence: without hematuria Qualified Code(s): N30.00 - Acute cystitis without hematuria Hypertension Qualifiers: Hypertension type: primary hypertension Qualified Code(s): I10 - Essential (primary) hypertension Condition: Stable Instructions: ED Hypertension Conf Out Of Control, ED UTI Cystitis Female Follow-Up: Leni Alexander ARNP [Provider Admit Priv/Credential] - Prescriptions: Ciprofloxacin HCl [Cipro] 500 mg PO BID #14 tablet Comments: Iris, today it looks like the symptoms you are are having are related to excessive blood pressure and a urinary tract infection. Today we have given you a dose of labetalol and this should help with your pressure today but you will need additional blood pressure medication changes and a follow-up with your primary care doctor is indicated. I have E scribed some Cipro to the [facility] in [place].
[2023-09-03] MEDS ORDERED: LOSARTAN 50 MG TABLET PO STA (10:36)
[2023-09-03 10:40] LABS: BASOPHILS # (AUTO) 0.1 10^3/uL (0.0-0.1); BASOPHILS % (AUTO) 0.9 %; EOSINOPHILS # (AUTO) 0.2 10^3/uL (0.0-0.7); EOSINOPHILS % (AUTO) 1.8 %; HCT - HEMATOCRIT 43.1 % (37.0-47.0); HGB - HEMOGLOBIN 14.2 g/dL (12.0-16.0); LYMPHOCYTES # (AUTO) 1.6 10^3/uL (1.5-3.5); LYMPHOCYTES % (AUTO) 19.9 %; MEAN CORPUSCULAR HEMOGLOBIN 29.6 pg (27.0-31.0); MEAN CORPUSCULAR HGB CONC 32.9 g/dL (32.0-36.0); MEAN PLATELET VOLUME 11.7 fL (7.9-10.8); MONOCYTES # (AUTO) 0.5 10^3/uL (0.0-1.0); MONOCYTES % (AUTO) 5.5 %; NEUTROPHILS # (AUTO) 5.9 10^3/uL (1.5-6.6); NEUTROPHILS % (AUTO) 71.7 %; PLT - PLATELET COUNT 257 10^3/uL (130-450); RED BLOOD COUNT 4.79 10^6/uL (4.20-5.40); RED CELL DISTRIBUTION WIDTH 14.2 % (12.0-15.0); WHITE BLOOD COUNT 8.2 x10^3/uL (4.8-10.8)
[2023-09-03 10:53] LABS: ALBUMIN 4.4 g/dL (3.2-5.5); ALBUMIN/GLOBULIN RATIO 1.6 (1.0-2.2); BILIRUBIN,TOTAL 0.6 mg/dL (0.2-1.0); CREATININE 0.9 mg/dL (0.6-1.3); POTASSIUM 4.1 mmol/L (3.5-4.5); TOTAL PROTEIN 7.2 g/dL (6.4-8.9)
--- NOTE | 2023-09-03 11:03 | XRAY Report ---
PROCEDURE: Chest 1 View X-Ray INDICATIONS: chest pain TECHNIQUE: One view of the chest was acquired. COMPARISON: None. FINDINGS: Surgical changes and devices: If there is strong clinical concern for a ligamentous abnormality, thi s should be performed according to the MRI arthrogram protocol. Lungs and pleura: An incomplete inspiratory result is noted, with low lung volumes and crowding of t he vascular markings. No focal infiltrates are seen. No large pneumothorax or large pleural effusion can be seen. Mediastinum: The aorta is prominent and tortuous. The cardiac contours are within normal limits. Bones and chest wall: No suspicious bony lesions. Age-appropriate degenerative changes are seen. O verlying soft tissues appear unremarkable. IMPRESSION: Limited portable chest examination, without an acute abnormality identified. Postoperative and degenerative changes are seen. Reviewed by: Cj Rebolledo MD on 09/03/2023 10:02 AM MANDO Approved by: Cj Rebolledo MD on 09/03/2023 10:02 AM MANDO Station ID: [id number]
[2023-09-03] MEDS ORDERED: iohexoL-300 100 ML VIAL IVP ONE (12:10)
[2023-09-03 12:14] LABS: BILIRUBIN,URINE NEGATIVE (NEGATIVE); GLUCOSE, URINE (UA) NEGATIVE (NEGATIVE); KETONES,URINE (UA) NEGATIVE (NEGATIVE); LEUKOCYTE ESTERASE, URINE MODERATE (NEGATIVE); NITRITE,URINE NEGATIVE (NEGATIVE); OCCULT BLOOD,URINE NEGATIVE (NEGATIVE); PH,URINE 7.5 PH (5.0-7.5); PROTEIN,URINE TRACE mg/dL (NEGATIVE); UROBILINOGEN,URINE 0.2 (NORMAL) E.U./dL (NORMAL)
[2023-09-03 12:17] LABS: CLARITY,URINE CLEAR (CLEAR)
[2023-09-03 12:20] LABS: AMORPHOUS SEDIMENT,UR Few /LPF; BACTERIA,URINE Moderate /HPF (None Seen); MUCUS,URINE Few Strands; RBC,URINE 0-5 /HPF (0-5); SQUAMOUS EPITHELIAL CELL,UR FEW Squamous (<= Few)
--- NOTE | 2023-09-03 12:25 | CT Report ---
PROCEDURE: CT Angio Head/Neck INDICATIONS: dizziness, dipplopia, afib no blood thinnner TECHNIQUE: After the administration of intravenous contrast, 0.5 mm thick sections acquired from the aortic arch through the [place]. 3-dimensional ssbtqvs-ljdzswlrq-pqayzftrsk (MIP) and/or volume render ing reformats were acquired of the central intracranial vasculature and neck separately. For radiati on dose reduction, the following was used: automated exposure control, adjustment of mA and/or kV ac cording to patient size. CONTRAST: 100ml omni 300 COMPARISON: Correlation is made with head CT, 11/16/2019. FINDINGS: Image quality: There is streak artifact seen through the level of the shoulders. HEAD CT: CSF Spaces: Basal cisterns are patent. No extra-axial fluid collections. Ventricles are normal in size and shape. Brain: No midline shift. No intracranial bleeds or masses. No abnormal intracranial enhancement. Spear-white interface appears normal. Skull and face: Calvarium and visualized facial bones appear intact, without suspicious lesions. Sinuses: Visualized sinuses and mastoids are clear. HEAD CT ANGIOGRAPHY: Anterior circulation: Intracranial internal carotid arteries are normal in size and flow. The flow within the paired anterior cerebral arteries is normal and symmetric. The flow within the middle cer ebral arteries is normal and symmetric. The anterior communicating artery is seen. No aneurysms are seen. Posterior circulation: The visualized portions of the vertebral arteries demonstrate normal caliber, and join to form a normal appearing basilar artery. Incidental note is made of a prominent right p osterior communicating artery, with a diminutive right P1 segment. 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 The flow within the posterior cerebral arteries is normal and sy mmetric. No stenoses, occlusions, or aneurysms. NECK CT ANGIOGRAPHY: Carotid system: The great vessels demonstrate a conventional anatomy as they arise from the aortic a rch. Atherosclerotic calcification is seen. The origins of the common carotid arteries appear patent. The common carotid arteries demonstrate normal caliber and courses. The bifurcation regions are keith th widely patent. The internal carotid arteries demonstrate normal calibers and courses. Posterior circulation: The origins of the vertebral arteries both appear widely patent. The more nation perior extracranial portions of both vertebral arteries also demonstrate normal courses and calibers. They join to form a normal appearing basilar artery. Soft tissues: Visualized neck soft tissues demonstrate no suspicious abnormalities. Bones: No suspicious bony lesions. Visualized cervical spine appears normally aligned. Moderate to prominent cervical spine degenerative change can be seen. IMPRESSION: No significant intracranial arterial abnormalities are seen. No hemodynamically significant stenosis can be seen within the arteries of the neck. If there is strong clinical concern for a stroke, please consider a dedicated brain MRI for further e valuation (assuming that there is no contraindication to MRI). 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
[2023-09-03] MEDS ORDERED: LABETALOL VIAL 200 MG in SODIUM CHLORIDE 0.9% 160 ML IV STA (13:23)
[2023-09-03] MEDS ORDERED: SODIUM CHLORIDE 0.9% 500 ML IV STA (13:23)
[2023-09-03] MEDS ORDERED: cefTRIAXone 1 GM in SODIUM CHLORIDE 0.9% MINIBAG 100 ML IV STA (13:41)
[2023-09-03] MEDS ORDERED: LABETALOL 20 MG/4 ML SYRINGE IVP STA (13:49)
[2023-09-03 14:46] VITALS: BP 183/77; O2SAT 99
== END 2023-09-03 15:10 | disposition home or self-care (01) ==
LOC: EDUNIT# → ED 09:37
DX: N30.00 Acute cystitis without hematuria (principal); I10 Essential (primary) hypertension; I48.91 Unspecified atrial fibrillation
CPT/HCPCS: 36415; 70496; 70498; 71045; 80053; 81001; 83690; 84484; 85025; 87086; 93005; 96365; 96375; 99284; A9270; Q9967; 81003

== ENCOUNTER 2023-09-12 09:53 | Outpatient (CLI) | payer MEDICARE, OTHER ==
[2023-09-12 13:06] LABS: BILIRUBIN,URINE NEGATIVE (NEGATIVE); GLUCOSE, URINE (UA) NEGATIVE (NEGATIVE); KETONES,URINE (UA) NEGATIVE (NEGATIVE); LEUKOCYTE ESTERASE, URINE NEGATIVE (NEGATIVE); NITRITE,URINE NEGATIVE (NEGATIVE); OCCULT BLOOD,URINE TRACE-INTA (NEGATIVE); PROTEIN,URINE NEGATIVE (NEGATIVE); UROBILINOGEN,URINE 0.2 (NORMAL) E.U./dL (NORMAL)
[2023-09-12 13:17] LABS: BACTERIA,URINE Rare /HPF (None Seen); CLARITY,URINE CLEAR (CLEAR); RBC,URINE 0-5 /HPF (0-5); SQUAMOUS EPITHELIAL CELL,UR RARE Squamous (<= Few)
== END 2023-09-12 09:54 | disposition home or self-care (01) ==
LOC: LAB.N 09:53
PROVIDERS: ATTEND Nurse Practitioner
DX: N39.0 Urinary tract infection, site not specified (principal)
CPT/HCPCS: 81001; 87086

== ENCOUNTER 2023-09-22 13:39 | Outpatient (CLI) | payer MEDICARE, OTHER ==
[2023-09-22 18:03] LABS: BASOPHILS # (AUTO) 0.1 10^3/uL (0.0-0.1); BASOPHILS % (AUTO) 0.9 %; EOSINOPHILS # (AUTO) 0.3 10^3/uL (0.0-0.7); EOSINOPHILS % (AUTO) 3.5 %; HCT - HEMATOCRIT 42.2 % (37.0-47.0); LYMPHOCYTES # (AUTO) 3.3 10^3/uL (1.5-3.5); LYMPHOCYTES % (AUTO) 36.4 %; MEAN CORPUSCULAR HEMOGLOBIN 29.9 pg (27.0-31.0); MEAN CORPUSCULAR HGB CONC 33.2 g/dL (32.0-36.0); MEAN CORPUSCULAR VOLUME 90.2 fL (81.0-99.0); MEAN PLATELET VOLUME 12.1 fL (7.9-10.8); MONOCYTES # (AUTO) 0.6 10^3/uL (0.0-1.0); MONOCYTES % (AUTO) 6.2 %; NEUTROPHILS # (AUTO) 4.8 10^3/uL (1.5-6.6); NEUTROPHILS % (AUTO) 52.7 %; PLT - PLATELET COUNT 328 10^3/uL (130-450); RED BLOOD COUNT 4.68 10^6/uL (4.20-5.40); RED CELL DISTRIBUTION WIDTH 14.1 % (12.0-15.0); WHITE BLOOD COUNT 9.2 x10^3/uL (4.8-10.8)
[2023-09-22 18:07] LABS: INR 1.2 (0.8-1.2); PT - PROTHROMBIN TIME 13.1 secs (9.9-12.6)
[2023-09-22 18:24] LABS: CALCIUM 10.3 mg/dL (8.5-10.3)
== END 2023-09-22 13:40 | disposition home or self-care (01) ==
LOC: LAB.N 13:39
PROVIDERS: ATTEND Specialist
DX: I48.91 Unspecified atrial fibrillation (principal)
CPT/HCPCS: 36415; 80048; 85025; 85610

== ENCOUNTER 2023-11-15 14:27 | Outpatient (CLI) | payer MEDICARE, OTHER ==
[2023-11-15 17:41] LABS: BASOPHILS # (AUTO) 0.1 10^3/uL (0.0-0.1); EOSINOPHILS # (AUTO) 0.3 10^3/uL (0.0-0.7); EOSINOPHILS % (AUTO) 3.6 %; HCT - HEMATOCRIT 41.4 % (37.0-47.0); HGB - HEMOGLOBIN 13.1 g/dL (12.0-16.0); LYMPHOCYTES # (AUTO) 3.2 10^3/uL (1.5-3.5); LYMPHOCYTES % (AUTO) 35.5 %; MEAN CORPUSCULAR HEMOGLOBIN 28.9 pg (27.0-31.0); MEAN CORPUSCULAR HGB CONC 31.6 g/dL (32.0-36.0); MEAN CORPUSCULAR VOLUME 91.4 fL (81.0-99.0); MEAN PLATELET VOLUME 12.3 fL (7.9-10.8); MONOCYTES # (AUTO) 0.7 10^3/uL (0.0-1.0); MONOCYTES % (AUTO) 7.4 %; NEUTROPHILS # (AUTO) 4.7 10^3/uL (1.5-6.6); NEUTROPHILS % (AUTO) 52.2 %; PLT - PLATELET COUNT 243 10^3/uL (130-450); RED BLOOD COUNT 4.53 10^6/uL (4.20-5.40); WHITE BLOOD COUNT 8.9 x10^3/uL (4.8-10.8)
[2023-11-15 17:48] LABS: INR 1.2 (0.8-1.2)
[2023-11-15 18:00] LABS: CALCIUM 10.3 mg/dL (8.5-10.3); POTASSIUM 3.8 mmol/L (3.5-4.5)
== END 2023-11-15 14:28 | disposition home or self-care (01) ==
LOC: LAB.N 14:27
PROVIDERS: ATTEND Specialist
DX: I48.91 Unspecified atrial fibrillation (principal)
CPT/HCPCS: 36415; 80048; 85025; 85610

== ENCOUNTER 2023-12-06 20:35 | Emergency (ER) | payer MEDICARE, OTHER ==
[2023-12-06 20:59] VITALS: BP 180/60; O2SAT 100
--- NOTE | 2023-12-06 22:37 | ED Physician Documentation ---
History of Present Illness - Stated complaint Stated Complaint: RT LEG SWELLING/PX - Chief complaint Chief Complaint: Ext Problem - History obtained from History obtained from: Patient, Family - Additonal information Additional information: 88-year-old female recently had watchman device placed through her right femoral groin about a month ago. Since then she has had significant amount of bruising and today presents with right lower extremity swelling, pain, erythema. She has had no fevers or chills. But she feels like she is having a hard time recovering with this right lower extremity swelling and new erythema to the anterior portion of her lower extremity has gotten worse and it is now hot to the touch. They have applied ice to the area with little relief. 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: None : None HEENT: None Psych: None Musculoskeletal: Osteoarthritis, Osteoporosis Derm: None - Past Surgical History Past Surgical History: Yes General: Appendectomy, Colonoscopy Ortho: Other Cardiovascular: Other HEENT: Tonsil/Adenoidectomy - Present Medications Home Medications: Ambulatory Orders Medication Instructions Recorded Confirmed Ascorbic Acid/Bioflavonoids [Vit 1 tab ORAL DAILY 08/07/15 09/03/23 C-Bioflavonoids Tab SA] Spenser Cit/Mag/D3/Zn/Budget Accountant/Mikey/Bor 2 tab ORAL DAILY 08/07/15 09/03/23 [Citracal-D3 Plus Magnesium Tab] Multivitamin [Multi-Vitamin Daily] 1 tab ORAL DAILY 08/07/15 09/03/23 [place]-3 Fatty Acids [Fish Oil] 1,400 mg ORAL DAILY 08/07/15 09/03/23 Red Yeast Rice 1,200 mg ORAL DAILY 08/07/15 09/03/23 Vit D3/Folic Acid/B2/B6/B12 1 tab ORAL DAILY 08/07/15 09/03/23 [Folgard Tablet] Aspirin [Aspirin EC] 81 mg PO DAILY 09/03/23 09/03/23 Ciprofloxacin HCl [Cipro] 500 mg PO BID #14 tablet 09/03/23 Losartan Potassium 25 mg PO DAILY 09/03/23 09/03/23 cephALEXin [Keflex] 500 mg PO Q6H 5 Days #20 cap 12/06/23 - Allergies Allergies/Adverse Reactions: Allergies Allergy/AdvReac Type Severity Reaction Status Date / Time amoxicillin Allergy Unknown Verified 12/06/23 20:45 gabapentin Allergy Unknown Verified 12/06/23 20:45 hydrochlorothiazide Allergy Dizziness Verified 12/06/23 20:45 simvastatin Allergy Unknown Verified 12/06/23 20:45 codeine AdvReac Intermediate Nausea Verified 12/06/23 20:45 latex AdvReac Unknown Verified 12/06/23 20:45 - Social History Does the pt smoke?: No Smoking Status: Never smoker Does the pt drink ETOH?: No Does the pt have substance abuse?: No - Immunizations Immunizations are current?: Yes PD ED PE NORMAL - Vitals Vital signs reviewed: Yes - General General: Alert and oriented X 3 - Cardiac Cardiac: RRR, Strong equal pulses - Respiratory Respiratory: No respiratory distress, Clear bilaterally - Derm Derm: Other (RLE erythema with non pitting edema and calf tenderness.) - Extremities Extremities: Other (Right calf tenderness with anterior erythema, warm to the touch) - Neuro Neuro: Alert and oriented X 3 Results - Vitals Vitals: Vital Signs - 24 hr 12/06/23 20:45 Temperature 36.5 C Heart Rate 67 Respiratory 16 Rate Blood Pressure 180/60 H O2 Saturation 100 Oxygen O2 Source Room air - Rads (name of study) Right LE venous duplex Relevant Findings:: Final report received, EMP independent interpretation of test (Right knee bakers cyst, right knee effusion, no DVT) PD Medical Decision Making - ED course ED course: 88-year-old female presents the emergency department for right lower extremity pain and swelling. Because of the unilateral leg swelling and tenderness especially in the right calf venous duplex was ordered to rule out possible DVT. 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 For me she denies any right knee pain. Patient was informed of these findings uncontrolled to follow-up with primary care provider for possible Ortho referral for further evaluation of this if she is having any issues with the right knee pain. A DVT was not found on the venous duplex. In regards to the right lower extremity erythema that is hot to the touch I believe she is having a mild case of cellulitis. Patient was started on Keflex here in the emergency department and a prescription was sent to her preferred pharmacy. She was informed to frequently elevate her right lower extremity for the inflammation and told to follow-up with her primary care provider put patient and given strict return precautions. Departure - Departure Disposition: 01 Home, Self Care Clinical Impression: Cellulitis Qualifiers: Site of cellulitis: extremity Site of cellulitis of extremity: lower extremity Laterality: right Qualified Code(s): L03.115 - Cellulitis of right lower limb Ferro's cyst of knee Qualifiers: Laterality: right Qualified Code(s): M71.21 - Synovial cyst of popliteal space [Ferro], right knee Condition: Good Instructions: Cellulitis Dc Prescriptions: cephALEXin [Keflex] 500 mg PO Q6H 5 Days #20 cap Comments: Thank you for trusting us with your care we have completed the venous duplex of the right lower extremity which does not reveal blood clot. I do believe that you are experiencing some cellulitis have started you on an antibiotic called Keflex here in the emergency department you will take this 4 times a day for the next 5 days. Please follow-up with your primary care provider for further ev aluation and make sure that you let him know my emergency department visit. Incidentally we did find that you have a Ferro's cyst behind your right knee there is nothing to do about this but just something to be aware of, if you are starting to notice that it starts to bother you can follow-up with an orthopedic surgeon for further evaluation of this. Please come back to the emergency department for started to experience any fevers, chills, nausea, vomiting, diarrhea or any other concerning symptoms. Your blood pressure was elevated today on check into the emergency department. This does not mean that you have hypertension, it is a common phenomenon to come to the emergency department and have elevated blood pressure. I recommend that you see your primary care physician within the week to have it rechecked when you are feeling better. Forms: PCP List Discharge Date/Time: 12/06/23 22:50
[2023-12-06] MEDS: cephALEXin 250 MG CAPSULE PO STA (22:44)
--- NOTE | 2023-12-06 23:21 | Ultrasound Report ---
PROCEDURE: Duplex Ext Veins Right INDICATIONS: right lower extremity swelling TECHNIQUE: Real-time imaging, as well as color and pulse Doppler interrogation, were performed of the lower extr emity deep veins from the inguinal ligament to the popliteal fossa. Attempted visualization of the ca lf veins was performed. COMPARISON: None. FINDINGS: The deep veins are normally compressible, and free of intraluminal thrombus. Color and pu lse Doppler demonstrate normal phasic intraluminal flow. There is normal augmentation response to di stal compression maneuver. Incidentally noted popliteal cyst measuring 7.5 x 4.6 x 0.7 cm. There is also a moderate knee effusio n. If there is high concern for further derangement, consider MRI evaluation. IMPRESSION: No deep venous thrombosis of the visualized lower extremity. Reviewed by: Rajesh Mondragon MD on 12/06/2023 11:19 PM PST Approved by: Rajesh Mondragon MD on 12/06/2023 11:19 PM PST Station ID: [id number]
== END 2023-12-06 22:50 | disposition home or self-care (01) ==
LOC: ED 20:35
DX: M71.21 Synovial cyst of popliteal space [Baker], right knee (principal); M25.461 Effusion, right knee; L03.115 Cellulitis of right lower limb; I10 Essential (primary) hypertension
CPT/HCPCS: 93971; 99284; A9270

== ENCOUNTER 2024-06-25 08:00 | Outpatient (CLI) | payer MEDICARE, OTHER | END 2024-06-25 08:01 | disposition home or self-care (01) | LOC: LAB.R 08:00 | PROVIDERS: ATTEND Nurse Practitioner | DX: L28.0 Lichen simplex chronicus (principal) | CPT/HCPCS: 87070; 87205 ==